=== PATIENT | male | born 1960 | race Native Hawaiian/Other Pacific Islander ===

== ENCOUNTER 2019-11-03 08:39 | Outpatient (CLI) | payer OTHER ==
--- NOTE | 2019-11-03 12:02 | SLEEP CARE CONSULTATION ---
Information from patient questionnaire entered by Manda Archer. I have reviewed and concur with the information entered by Manda Archer. This document represents the service I personally performed and the decisions made by me, Digna Means ARNP. History of Present Illness Service Date and Time: 11/03/2019 0839 Reason for Visit: New patient, Previously diagnosed sleep apnea (Severe - AHI - 31.3), sleep apnea on CPAP therapy (BiPap) Chief Complaint: reports: Unrefreshed sleep, Fatigue, Frequent awakenings at night, Other (mask fitting) Duration of Symptoms: 8 years Usual bedtime: 7-10 pm Time it takes to fall asleep: 30-60 minutes Snores at night: Yes (not with my Bipap machine) Observed to quit breathing while asleep: No Sleeps alone due to snoring: No Number of times waking at night: 4-5 Reasons for waking at night: reports: Pain (in my feet), Bathroom Toss, Turn, or Twitch while sleeping: Yes Recalls having dreams: Yes Usually gets out of bed at: 3-4 am Feels refreshed in the morning: No Morning headache: No Sleepy or fatigued during the day: Yes Ever fallen asleep while driving: No Takes day naps: Yes (sometimes) Dreams during day naps: Yes (sometimes) Prior sleep studies: Yes Year and Where: 2010 [facility] - Parasomnia Symptoms Ever been unable to move upon waking from sleep: No Ever felt weak in the knees when startled or emotional: No Bothered by creepy, crawly, restless sensations in legs: Yes Problems with memory or concentration: No Subjective Initial [place] Sleepiness Scale score: 6 (in 2019) Past Medical History Past Medical History: reports: Hypertension, Diabetes, Arthritis, Impotence, GERD Social History The patient's occupation is a Retired. Patient is and lives in [place]. Have you smoked in the past 12 months: Yes Cigarettes per day (20/pack): 20 Years of smokin Smoking Pack Years: 45.0 Alcohol use: Yes Alcohol amount and frequency: 25 oz once a week Caffeine use: Yes Caffeine amount and frequency: 2 cups daily Family History Family history of sleep disordered breathing: No Review of Systems Weight loss over past 5 years: 60 Cardiovascular: reports: high blood pressure, irregular heart rate or pulse, leg or foot swelling Gastrointestinal: reports: heartburn Urinary: reports: frequency, impotence Ear/Nose/Throat: reports: wisdom teeth removed Endocrine: reports: sluggishness Musculoskeletal: reports: joint pain, back pain, joint swelling, mobility problems, other (neuropathy) Impression and Plan I went in to see patient about 1105, he declined to be seen here for establishment of care and he left the office. Follow up recommended for: Hypoxia Time Spent with Patient (minutes): 5
== END 2019-11-03 08:40 | disposition home or self-care (01) ==
LOC: SC 08:39
PROVIDERS: ATTEND Nurse Practitioner Family
DX: G47.30 Sleep apnea, unspecified (principal); F17.210 Nicotine dependence, cigarettes, uncomplicated